=== PATIENT | female | born 1995 | race Caucasian/White ===

== ENCOUNTER 2020-04-27 16:42 | Inpatient (IN) | payer BC ==
[2020-04-27] MEDS ORDERED: Acetaminophen 325 MG Tab PO PRN (17:49)
[2020-04-27] MEDS ORDERED: Ondansetron 4 MG/2 ML SDV IVPUSH PRN (17:49)
[2020-04-27] MEDS ORDERED: Nalbuphine 10 MG/ML Syringe IVPUSH PRN (17:49)
[2020-04-27] MEDS ORDERED: Lidocaine 1% 50 ML MDV INJECT ONE (17:49)
[2020-04-27] MEDS ORDERED: Calcium Carbonate 500 MG Tab.Chew PO PRN (17:49)
[2020-04-27] MEDS ORDERED: Sodium Chloride 0.9% 10 ML Syringe FLUSH PRN (17:49)
[2020-04-27] MEDS ORDERED: Oxytocin/Lactated Ringers 10 UNIT/1,000 ML BAG IV SCH (18:00)
--- NOTE | 2020-04-27 19:40 | PCM.LDHP ---
<Maira Tolentino - Last Filed: 04/28/20 08:27> L&D History of Present Illness - General Admit Problem/Dx: Patient Status Order with Admit Dx/Problem 04/27/20 17:49 Patient Status [ADT] Routine Admission Diagnosis/Problem Admission Diagnosis/Problem - Related Data Allergies/Adverse Reactions: Allergies Allergy/AdvReac Type Severity Reaction Status Date / Time No Known Allergies Allergy Verified 04/27/20 18:42 Home Medications: Home Meds Calcium Carbonate [Tums] 1,000 mg PO BID 04/27/20 [History] Vit/FA/Fe Fumarate/Se [ MTR] 1 tab PO DAILY 04/27/20 [History] H&P Review of Systems - Review of Systems: General: Reports: No Symptoms HEENT: Reports: No Symptoms Pulmonary: Reports: No Symptoms Cardiovascular: Reports: No Symptoms Gastrointestinal: Reports: No Symptoms Genitourinary: Reports: No Symptoms Musculoskeletal: Reports: No Symptoms Skin: Reports: No Symptoms Psychiatric: Reports: No Symptoms Neurological: Reports: No Symptoms Hematologic/Lymphatic: Reports: No Symptoms Immunologic: Reports: No Symptoms L&D Exam - Vital Signs Vital Signs: Last Vital Signs Temp 37.2 C 04/27/20 17:49 Pulse 86 04/27/20 17:49 Resp 14 04/27/20 17:49 BP 131/85 04/27/20 17:49 Pulse Ox - Patient Data Lab Results Last 24 hrs: Laboratory Results - last 24 hr 04/27/20 04/27/20 04/27/20 Range/Units 17:45 18:02 18:02 WBC 9.33 (3.98-10.04) K/mm3 RBC 4.44 (3.98-5.22) M/mm3 Hgb 12.8 (11.2-15.7) gm/dl Hct 38.4 (34.1-44.9) % MCV 86.5 (79.4-94.8) fl MCH 28.8 (25.6-32.2) pg MCHC 33.3 (32.2-35.5) g/dl RDW Std Deviation 40.7 (36.4-46.3) fL Plt Count 240 (182-369) K/mm3 MPV 10.1 (9.4-12.3) fl Neut % (Auto) 66.0 (34.0-71.1) % Lymph % (Auto) 22.2 (19.3-51.7) % [place] % (Auto) 10.4 (4.7-12.5) % Eos % (Auto) 1.0 (0.7-5.8) Baso % (Auto) 0.1 (0.1-1.2) % Neut # (Auto) 6.16 H (1.56-6.13) K/mm3 Lymph # (Auto) 2.07 (1.18-3.74) K/mm3 [place] # (Auto) 0.97 H (0.24-0.36) K/mm3 Eos # (Auto) 0.09 (0.04-0.36) K/mm3 Baso # (Auto) 0.01 (0.01-0.08) K/mm3 RPR Non-reactive (NONREACTIVE) SARS CoV-2 RNA Rapid CHER Negative (NEGATIVE) Result Diagrams: 04/27/20 18:02 Orders Last 24hrs: Active Orders 24 hr Category Date Time Status Patient Status [ADT] Routine ADT 04/27/20 17:49 Active Activity as Tolerated [RC] PFP Care 04/27/20 17:49 Active Communication Order [RC] ASDIRECTED Care 04/27/20 17:49 Active Heart Tones [RC] ASDIRECTED Care 04/27/20 17:50 Active Notify Provider [RC] ASDIRECTED Care 04/28/20 01:08 Active Notify Provider [RC] PFP Care 04/27/20 17:49 Active Notify Provider [RC] PRN Care 04/27/20 17:49 Active Peripheral IV Care [RC] . DIRECTED Care 04/27/20 17:50 Active Urinary Catheter Assessment [RC] ASDIRECTED Care 04/27/20 17:49 Active Vital Signs [RC] PER UNIT ROUTINE Care 04/27/20 17:49 Active Acetaminophen [TylenoL] Med 04/27/20 17:49 Active 650 mg PO Q4H PRN Bupivacaine/fentaNYL/NS [fentaNYL/Bupivacaine/NS 2 MCG- Med 04/28/20 01:08 Active 0.125% 100 ML] 100 ml EPIDUR ASDIRECTED PRN Calcium Carbonate [Tums] Med 04/27/20 17:49 Active 1,000 mg PO Q2H PRN Lactated Ringers [Ringers, Lactated] 1,000 ml Med 04/27/20 18:00 Active IV ASDIRECTED Nalbuphine [Nubain] Med 04/27/20 17:49 Active 10 mg IVPUSH Q2H PRN Ondansetron [Zofran] Med 04/27/20 17:49 Active 4 mg IVPUSH Q4H PRN Oxytocin/Lactated Ringers [Pitocin in LR 10 Units/1,000 Med 04/27/20 18:00 Active ML] 10 unit in 1,000 ml IV .CONTINUOUS Oxytocin/Lactated Ringers [Pitocin in LR 10 Units/1,000 Med 04/27/20 18:00 Active ML] 10 unit in 1,000 ml IV TITRATE Sodium Chloride 0.9% [Saline Flush] Med 04/27/20 17:49 Active 10 ml FLUSH ASDIRECTED PRN diphenhydrAMINE [Benadryl] Med 04/28/20 01:08 Active 25 mg IVPUSH Q6H PRN ePHEDrine [ePHEDrine sulfate] Med 04/28/20 01:08 Active 5 mg IVPUSH ASDIRECTED PRN fentaNYL [Sublimaze] Med 04/28/20 01:08 Active 100 mcg EPIDUR Q3H PRN Electronic Heart Tones Ext w TOCO [WOMSER] Oth 04/27/20 17:49 Ordered Routine Electronic Heart Tones Internal [WOMSER] Per Unit Ot 04/27/20 17:49 Ordered Routine Peripheral IV Insertion Adult [OM.PC] Routine Oth 04/27/20 17:49 Ordered Resuscitation Status Routine Resus Stat 04/27/20 17:49 Ordered Medication Orders Acetaminophen (Tylenol) 650 mg PO Q4H PRN PRN Reason: Pain (Mild 1-3) and fever Calcium Carbonate/Glycine (Tums) 1,000 mg PO Q2H PRN PRN Reason: Indigestion Diphenhydramine HCl (Benadryl) 25 mg IVPUSH Q6H PRN PRN Reason: pruritis Ephedrine Sulfate (Ephedrine Sulfate) 5 mg IVPUSH ASDIRECTED PRN PRN Reason: Hypotension Fentanyl (Sublimaze) 100 mcg EPIDUR Q3H PRN PRN Reason: Pain Last Admin: 04/28/20 01:44 Dose: 100 mcg Documented by: MYRON Fentanyl/Bupivacaine HCl (Fentanyl/Bupivacaine/Ns 2 Mcg-0.125% 100 Ml) 100 ml EPIDUR ASDIRECTED PRN PRN Reason: Pain Last Admin: 04/28/20 01:44 Dose: 100 ml Documented by: MYRON Oxytocin/Lactated Ringer's (Pitocin In Lr 10 Units/1,000 Ml) 10 unit in 1,000 mls @ 12 mls/hr IV TITRATE MAHNAZ; Protocol Last Titration: 04/28/20 04:35 Dose: 14 munits/min, 84 mls/hr Documented by: Titration: 04/28/20 03:56 Dose: 12 munits/min, 72 mls/hr Documented by: Titration: 04/28/20 03:10 Dose: 10 munits/min, 60 mls/hr Documented by: Titration: 04/28/20 01:55 Dose: 8 munits/min, 48 mls/hr Documented by: Titration: 04/27/20 23:21 Dose: 6 munits/min, 36 mls/hr Documented by: Titration: 04/27/20 22:42 Dose: 4 munits/min, 24 mls/hr Documented by: Admin: 04/27/20 21:50 Dose: 2 munits/min, 12 mls/hr Documented by: MYRON Oxytocin/Lactated Ringer's (Pitocin In Lr 10 Units/1,000 Ml) 10 unit in 1,000 mls @ 100 mls/hr IV .CONTINUOUS MAHNAZ; Protocol Lactated Ringer's (Ringers, Lactated) 1,000 mls @ 100 mls/hr IV ASDIRECTED MAHNAZ Last Admin: 04/28/20 03:07 Dose: 100 mls/hr Documented by: Infusion: 04/28/20 03:07 Dose: 100 mls/hr Documented by: Admin: 04/28/20 01:07 Dose: 100 mls/hr Documented by: Infusion: 04/28/20 01:07 Dose: 100 mls/hr Documented by: Admin: 04/27/20 21:50 Dose: 100 mls/hr Documented by: MYRON Nalbuphine HCl (Nubain) 10 mg IVPUSH Q2H PRN PRN Reason: Pain Ondansetron HCl (Zofran) 4 mg IVPUSH Q4H PRN PRN Reason: Nausea/Vomiting Sodium Chloride (Saline Flush) 10 ml FLUSH ASDIRECTED PRN PRN Reason: Keep Vein Open <MaishaVonnie L - Last Filed: 04/28/20 13:45> L&D History of Present Illness - General Date of Service: 04/27/20 Admit Problem/Dx: Patient Status Order with Admit Dx/Problem 04/27/20 17:49 Patient Status [ADT] Routine Admission Diagnosis/Problem Admission Diagnosis/Problem Source of Information: Patient History Limitations: Reports: No Limitations - History of Present Illness Introduction:: at 40w6d comes in for induction of labor. She lost her mucus plug this morning, but she has not had any regular contractions at this time. 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 Social & Family History - Family History Family Medical History: Noncontributory - Tobacco Use Smoking Status *Q: Never Smoker Second Hand Smoke Exposure: No - Caffeine Use Caffeine Use: Reports: None - Recreational Drug Use Recreational Drug Use: No H&P Review of Systems - Review of Systems: Review Of Systems: See Below General: Denies: Fever, Chills HEENT: Reports: No Symptoms Pulmonary: Reports: No Symptoms Cardiovascular: Reports: No Symptoms Gastrointestinal: Reports: No Symptoms Genitourinary: Reports: No Symptoms Musculoskeletal: Reports: No Symptoms Skin: Reports: No Symptoms Psychiatric: Reports: No Symptoms Neurological: Reports: No Symptoms Hematologic/Lymphatic: Reports: No Symptoms Immunologic: Reports: No Symptoms L&D Exam - Exam Exam: See Below - Vital Signs Vital Signs: Last Vital Signs Temp 99.0 F 04/27/20 17:49 Pulse 86 04/27/20 17:49 Resp 14 04/27/20 17:49 BP 131/85 04/27/20 17:49 Pulse Ox Weight: 184 lb 14.4 oz - OB Specific Movement: Active Heart Tones: Present - Muhammad Score Muhammad Score Consistency: Soft Muhammad Score Effacement: >80% Muhammad Score Dilation: 3-4 cm - Exam General: Alert, Oriented HEENT: Conjunctiva Clear, Mucosa Moist & [place] Lungs: Clear to Auscultation, Normal Respiratory Effort Cardiovascular: Regular Rate, Regular Rhythm Back Exam: Normal Inspection Extremities: Normal Inspection Skin: Warm, Dry Psychiatric: Alert, Normal Affect - Patient Data Lab Results Last 24 hrs: Laboratory Results - last 24 hr 04/27/20 04/27/20 Range/Units 17:45 18:02 WBC 9.33 (3.98-10.04) K/mm3 RBC 4.44 (3.98-5.22) M/mm3 Hgb 12.8 (11.2-15.7) gm/dl Hct 38.4 (34.1-44.9) % MCV 86.5 (79.4-94.8) fl MCH 28.8 (25.6-32.2) pg MCHC 33.3 (32.2-35.5) g/dl RDW Std Deviation 40.7 (36.4-46.3) fL Plt Count 240 (182-369) K/mm3 MPV 10.1 (9.4-12.3) fl Neut % (Auto) 66.0 (34.0-71.1) % Lymph % (Auto) 22.2 (19.3-51.7) % [place] % (Auto) 10.4 (4.7-12.5) % Eos % (Auto) 1.0 (0.7-5.8) Baso % (Auto) 0.1 (0.1-1.2) % Neut # (Auto) 6.16 H (1.56-6.13) K/mm3 Lymph # (Auto) 2.07 (1.18-3.74) K/mm3 [place] # (Auto) 0.97 H (0.24-0.36) K/mm3 Eos # (Auto) 0.09 (0.04-0.36) K/mm3 Baso # (Auto) 0.01 (0.01-0.08) K/mm3 SARS CoV-2 RNA Rapid CHER Negative (NEGATIVE) Result Diagrams: 04/27/20 18:02 - Problem List (1) SNOMED Code(s): 92631704 ICD Code: Z34.90 - ENCNTR FOR SUPRVSN OF NORMAL , UNSP, UNSP TRIME STER Status: Acute Current Visit: Yes Qualifiers: Weeks of gestation: 40 weeks Qualified Code(s): Z3A.40 - 40 weeks gestation of Problem List Initiated/Reviewed/Updated: Yes Orders Last 24hrs: Active Orders 24 hr Category Date Time Status Patient Status [ADT] Routine ADT 04/27/20 17:49 Active Activity as Tolerated [RC] PFP Care 04/27/20 17:49 Active Communication Order [RC] ASDIRECTED Care 04/27/20 17:49 Active Heart Tones [RC] ASDIRECTED Care 04/27/20 17:50 Active Notify Provider [RC] PFP Care 04/27/20 17:49 Active Notify Provider [RC] PRN Care 04/27/20 17:49 Active Peripheral IV Care [RC] . DIRECTED Care 04/27/20 17:50 Active Urinary Catheter Assessment [RC] ASDIRECTED Care 04/27/20 17:49 Active Vital Signs [RC] PER UNIT ROUTINE Care 04/27/20 17:49 Active RAPID PLASMA REAGIN,RPR [CHEM] Routine Lab 04/27/20 18:02 Received Acetaminophen [TylenoL] Med 04/27/20 17:49 Active 650 mg PO Q4H PRN Calcium Carbonate [Tums] Med 04/27/20 17:49 Active 1,000 mg PO Q2H PRN Lactated Ringers [Ringers, Lactated] 1,000 ml Med 04/27/20 18:00 Active IV ASDIRECTED Nalbuphine [Nubain] Med 04/27/20 17:49 Active 10 mg IVPUSH Q2H PRN Ondansetron [Zofran] Med 04/27/20 17:49 Active 4 mg IVPUSH Q4H PRN Oxytocin/Lactated Ringers [Pitocin in LR 10 Units/1,000 Med 04/27/20 18:00 Active ML] 10 unit in 1,000 ml IV .CONTINUOUS Oxytocin/Lactated Ringers [Pitocin in LR 10 Units/1,000 Med 04/27/20 18:00 Active ML] 10 unit in 1,000 ml IV TITRATE Sodium Chloride 0.9% [Saline Flush] Med 04/27/20 17:49 Active 10 ml FLUSH ASDIRECTED PRN Electronic Heart Tones Ext w TOCO [WOMSER] Oth 04/27/20 17:49 Ordered Routine Electronic Heart Tones Internal [WOMSER] Per Unit Oth 04/27/20 17:49 Ordered Routine Peripheral IV Insertion Adult [OM.PC] Routine Oth 04/27/20 17:49 Ordered Resuscitation Status Routine Resus Stat 04/27/20 17:49 Ordered Medication Orders Acetaminophen (Tylenol) 650 mg PO Q4H PRN PRN Reason: Pain (Mild 1-3) and fever Calcium Carbonate/Glycine (Tums) 1,000 mg PO Q2H PRN PRN Reason: Indigestion Oxytocin/Lactated Ringer's (Pitocin In Lr 10 Units/1,000 Ml) 10 unit in 1,000 mls @ 12 mls/hr IV TITRATE MAHANZ; Protocol Oxytocin/Lactated Ringer's (Pitocin In Lr 10 Units/1,000 Ml) 10 unit in 1,000 mls @ 100 mls/hr IV .CONTINUOUS MAHNAZ; Protocol Lactated Ringer's (Ringers, Lactated) 1,000 mls @ 100 mls/hr IV ASDIRECTED MAHNAZ Nalbuphine HCl (Nubain) 10 mg IVPUSH Q2H PRN PRN Reason: Pain Ondansetron HCl (Zofran) 4 mg IVPUSH Q4H PRN PRN Reason: Nausea/Vomiting Sodium Chloride (Saline Flush) 10 ml FLUSH ASDIRECTED PRN PRN Reason: Keep Vein Open Assessment/Plan Comment:: Will continue to monitor her for signs of labor and assess wellbeing. Will begin oxytocin and give an epidural as needed.
[2020-04-27] MEDS: Oxytocin/Lactated Ringers 10 UNIT/1,000 ML BAG IV SCH (21:50)
[2020-04-27] MEDS: Lactated Ringers 1,000 ML IV SCH (21:50)
[2020-04-28] MEDS: Lactated Ringers 1,000 ML IV SCH ×4 (01:07→12:14)
[2020-04-28] MEDS ORDERED: diphenhydrAMINE 50 MG/ML SDV IVPUSH PRN ×3 (01:08→18:01)
[2020-04-28] MEDS ORDERED: ePHEDrine 50 MG/ML SDV IVPUSH PRN ×3 (01:08→18:01)
[2020-04-28] MEDS ORDERED: fentaNYL 100 MCG/2 ML SDV ONE ×2 (01:10→15:58)
--- NOTE | 2020-04-28 01:34 | PCM.PREANE ---
Preanesthetic Assessment - Procedure Proposed Procedure: john - Anesthesia/Transfusion/Family Hx Anesthesia History: No Prior Anesthesia Family History of Anesthesia Reaction: No Transfusion History: No Prior Transfusion(s) - Review of Systems General: No Symptoms Pulmonary: No Symptoms Cardiovascular: No Symptoms Gastrointestinal: No Symptoms Neurological: No Symptoms Other: Reports: None - Physical Assessment Vital Signs: Last Vital Signs Temp 99.0 F 04/27/20 17:49 Pulse 86 04/27/20 17:49 Resp 14 04/27/20 17:49 BP 131/85 04/27/20 17:49 Pulse Ox Height: 5 ft Weight: 83.869 kg ASA Class: 2 Mental Status: Alert & Oriented x3 Airway Class: Mallampati = 1 Dentition: Reports: Normal Dentition Thyro-Mental Finger Breadths: 3 Mouth Opening Finger Breadths: 3 ROM/Head Extension: Full Lungs: Clear to Auscultation, Normal Respiratory Effort Cardiovascular: Regular Rate, Regular Rhythm, No Murmurs - Lab Values: Laboratory Last Values WBC 9.33 K/mm3 (3.98-10.04) 04/27/20 18:02 RBC 4.44 M/mm3 (3.98-5.22) 04/27/20 18:02 Hgb 12.8 gm/dl (11.2-15.7) 04/27/20 18:02 Hct 38.4 % (34.1-44.9) 04/27/20 18:02 MCV 86.5 fl (79.4-94.8) 04/27/20 18:02 MCH 28.8 pg (25.6-32.2) 04/27/20 18: MCHC 33.3 g/dl (32.2-35.5) 04/27/20 18:02 RDW Std Deviation 40.7 fL (36.4-46.3) 04/27/20 18:02 Plt Count 240 K/mm3 (182-369) 04/27/20 18:02 MPV 10.1 fl (9.4-12.3) 04/27/20 18:02 Neut % (Auto) 66.0 % (34.0-71.1) 04/27/20 18:02 Lymph % (Auto) 22.2 % (19.3-51.7) 04/27/20 18:02 [place] % (Auto) 10.4 % (4.7-12.5) 04/27/20 18:02 Eos % (Auto) 1.0 (0.7-5.8) 04/27/20 18:02 Baso % (Auto) 0.1 % (0.1-1.2) 04/27/20 18:02 Neut # (Auto) 6.16 K/mm3 (1.56-6.13) H 04/27/20 18:02 Lymph # (Auto) 2.07 K/mm3 (1.18-3.74) 04/27/20 18:02 [place] # (Auto) 0.97 K/mm3 (0.24-0.36) H 04/27/20 18:02 Eos # (Auto) 0.09 K/mm3 (0.04-0.36) 04/27/20 18:02 Baso # (Auto) 0.01 K/mm3 (0.01-0.08) 04/27/20 18:02 RPR Non-reactive (NONREACTIVE) 04/27/20 18:02 SARS CoV-2 RNA Rapid CHER Negative (NEGATIVE) 04/27/20 17:45 - Allergies Allergies/Adverse Reactions: Allergies Allergy/AdvReac Type Severity Reaction Status Date / Time No Known Allergies Allergy Verified 04/27/20 18:42 - Blood Blood Available: No - Acknowledgements Anesthesia Type Planned: Epidural Pt an Appropriate Candidate for the Planned Anesthesia: Yes Alternatives and Risks of Anesthesia Discussed w Pt/Guardian: Yes Pt/Guardian Understands and Agrees with Anesthesia Plan: Yes PreAnesthesia Questionnaire Cardiovascular History: Reports: None Respiratory History: Reports: None Gastrointestinal History: Reports: 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: , 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 : 2 Para: 0 - SUBSTANCE USE Smoking Status *Q: Never Smoker Tobacco Use Within Last Twelve Months: No Second Hand Smoke Exposure: No Days Per Week of Alcohol Use: 0 Recreational Drug Use History: No - HOME MEDS Home Medications: Home Meds Calcium Carbonate [Tums] 1,000 mg PO BID 04/27/20 [History] Vit/FA/Fe Fumarate/Se [ MTR] 1 tab PO DAILY 04/27/20 [History] - CURRENT (IN HOUSE) MEDS Current Meds: Current Medications Acetaminophen (Tylenol) 650 mg PO Q4H PRN PRN Reason: Pain (Mild 1-3) and fever Calcium Carbonate/Glycine (Tums) 1,000 mg PO Q2H PRN PRN Reason: Indigestion Diphenhydramine HCl (Benadryl) 25 mg IVPUSH Q6H PRN PRN Reason: pruritis Ephedrine Sulfate (Ephedrine Sulfate) 5 mg IVPUSH ASDIRECTED PRN PRN Reason: Hypotension Fentanyl (Sublimaze) 100 mcg EPIDUR Q3H PRN PRN Reason: Pain Fentanyl/Bupivacaine HCl (Fentanyl/Bupivacaine/Ns 2 Mcg-0.125% 100 Ml) 100 ml EPIDUR ASDIRECTED PRN PRN Reason: Pain Oxytocin/Lactated Ringer's (Pitocin In Lr 10 Units/1,000 Ml) 10 unit in 1,000 mls @ 12 mls/hr IV TITRATE MAHNAZ; Protocol Last Titration: 04/27/20 23:21 Dose: 6 munits/min, 36 mls/hr Documented by: Oxytocin/Lactated Ringer's (Pitocin In Lr 10 Units/1,000 Ml) 10 unit in 1,000 mls @ 100 mls/hr IV .CONTINUOUS MAHNAZ; Protocol Lactated Ringer's (Ringers, Lactated) 1,000 mls @ 100 mls/hr IV ASDIRECTED MAHNAZ Last Admin: 04/28/20 01:07 Dose: 100 mls/hr Documented by: Nalbuphine HCl (Nubain) 10 mg IVPUSH Q2H PRN PRN Reason: Pain Ondansetron HCl (Zofran) 4 mg IVPUSH Q4H PRN PRN Reason: Nausea/Vomiting Sodium Chloride (Saline Flush) 10 ml FLUSH ASDIRECTED PRN PRN Reason: Keep Vein Open Discontinued Medications Fentanyl (Sublimaze) Confirm Administered Dose 100 mcg .ROUTE .STK-MED ONE Stop: 04/28/20 01:11 Lidocaine HCl (Xylocaine 1%) 50 ml INJECT ONETIME ONE Stop: 04/27/20 17:50
[2020-04-28] MEDS: fentaNYL 100 MCG/2 ML SDV EPIDUR PRN ×3 (01:44→09:47)
[2020-04-28] MEDS: Bupivacaine/fentaNYL/NS 100 ML Bag EPIDUR PRN ×2 (01:44→08:58)
[2020-04-28] MEDS: Oxytocin/Lactated Ringers 10 UNIT/1,000 ML BAG IV SCH (12:11)
--- NOTE | 2020-04-28 14:43 | PCM.PNLD ---
Labor Progress Note - VS & Meds Vital Signs: Last Vital Signs Temp 37.2 C 04/27/20 17:49 Pulse 86 04/27/20 17:49 Resp 14 04/27/20 17:49 BP 131/85 04/27/20 17:49 Pulse Ox Active Medications: Current Medications Acetaminophen (Tylenol) 650 mg PO Q4H PRN PRN Reason: Pain (Mild 1-3) and fever Last Admin: 04/28/20 12:14 Dose: 650 mg Documented by: Calcium Carbonate/Glycine (Tums) 1,000 mg PO Q2H PRN PRN Reason: Indigestion Diphenhydramine HCl (Benadryl) 25 mg IVPUSH Q6H PRN PRN Reason: pruritis Ephedrine Sulfate (Ephedrine Sulfate) 5 mg IVPUSH ASDIRECTED PRN PRN Reason: Hypotension Fentanyl (Sublimaze) 100 mcg EPIDUR Q3H PRN PRN Reason: Pain Last Admin: 04/28/20 09:47 Dose: 100 mcg Documented by: Fentanyl/Bupivacaine HCl (Fentanyl/Bupivacaine/Ns 2 Mcg-0.125% 100 Ml) 100 ml EPIDUR ASDIRECTED PRN PRN Reason: Pain Last Admin: 04/28/20 08:58 Dose: 100 ml Documented by: Oxytocin/Lactated Ringer's (Pitocin In Lr 10 Units/1,000 Ml) 10 unit in 1,000 mls @ 12 mls/hr IV TITRATE MAHNAZ; Protocol Last Titration: 04/28/20 13:00 Dose: 18 munits/min, 108 mls/hr Documented by: Oxytocin/Lactated Ringer's (Pitocin In Lr 10 Units/1,000 Ml) 10 unit in 1,000 mls @ 100 mls/hr IV .CONTINUOUS MAHNAZ; Protocol Lactated Ringer's (Ringers, Lactated) 1,000 mls @ 100 mls/hr IV ASDIRECTED MAHNAZ Last Admin: 04/28/20 12:14 Dose: 100 mls/hr Documented by: Nalbuphine HCl (Nubain) 10 mg IVPUSH Q2H PRN PRN Reason: Pain Ondansetron HCl (Zofran) 4 mg IVPUSH Q4H PRN PRN Reason: Nausea/Vomiting Sodium Chloride (Saline Flush) 10 ml FLUSH ASDIRECTED PRN PRN Reason: Keep Vein Open Discontinued Medications Fentanyl (Sublimaze) Confirm Administered Dose 100 mcg .ROUTE .STK-MED ONE Stop: 04/28/20 01:11 Last Admin: 04/28/20 02:23 Dose: Not Given Documented by: Lidocaine HCl (Xylocaine 1%) 50 ml INJECT ONETIME ONE Stop: 04/27/20 17:50 - Uterine Contractions Contraction Intensity: Mild - Monitoring Strip Review: Category I - Vaginal Exam Dilation (cm): 9.5 Effacement (Percent): 80 Station: -2 - Labor Progress (Free Text) Labor Progress: Still has anterior rim since 11am. Will attempt further position changes and recheck in 30 minutes or so. If no progress will consent for section.
[2020-04-28] MEDS ORDERED: Metoclopramide 10 MG/2 ML SDV IVPUSH ONE (15:27)
[2020-04-28] MEDS ORDERED: Citric Acid/Sodium Citrate Solution 30 ML Cup PO ONE (15:27)
[2020-04-28] MEDS ORDERED: Sodium Chloride 0.9% 10 ML Syringe FLUSH PRN (15:27)
[2020-04-28] MEDS ORDERED: Lactated Ringers 1,000 ML IV SCH (15:30)
[2020-04-28] MEDS ORDERED: Bupivacaine 0.5% 30 ML SDV ONE (15:52)
[2020-04-28] MEDS ORDERED: Lactated Ringers 2,000 ML ONE (15:58)
[2020-04-28] MEDS ORDERED: Ketorolac 30 MG/ML SDV ONE (15:58)
[2020-04-28] MEDS ORDERED: ceFAZolin 1 GM Vial ONE (15:58)
[2020-04-28] MEDS ORDERED: Morphine PF 1 MG/ML Amp ONE (15:58)
[2020-04-28] MEDS ORDERED: Oxytocin 10 Units/1 ML SDV ONE (15:58)
[2020-04-28] MEDS ORDERED: Ondansetron 4 MG/2 ML SDV ONE (15:58)
[2020-04-28] MEDS ORDERED: Lidocaine 2% with EPINEPHrine 1:200,000 20 ML SDV ONE (15:58)
[2020-04-28] MEDS ORDERED: Morphine PF 10 MG/10 ML SDV ONE (15:59)
[2020-04-28] MEDS ORDERED: Lidocaine 1.5% with EPINEPHrine 1:200,000 5 ML Amp ONE (16:00)
[2020-04-28] MEDS ORDERED: Bupivacaine 0.25% 10 ML SDV ONE (16:00)
[2020-04-28] MEDS ORDERED: Azithromycin 500 MG in Sodium Chloride 0.9% 250 ML IV ONE (16:00)
[2020-04-28] MEDS ORDERED: fentaNYL 100 MCG/2 ML SDV IVPUSH PRN (16:07)
[2020-04-28] MEDS ORDERED: HYDROmorphone 0.5 MG/0.5 ML Syringe IVPUSH PRN (16:07)
[2020-04-28] MEDS ORDERED: Ondansetron 4 MG/2 ML SDV IVPUSH PRN (16:07)
[2020-04-28] MEDS ORDERED: Meperidine 50 MG/ML Vial ONE (16:53)
--- NOTE | 2020-04-28 17:25 | PCM.OPNOTE ---
- General Post-Op/Procedure Note Date of Surgery/Procedure: 04/28/20 Operative Procedure(s): primary section Findings: Viable male, weight 6#6oz, normal uterus tubes and ovaries. Pre Op Diagnosis: failure to descend Primary Surgeon: Maira Tolentino Electric Lineman: Abilio Grissom Jr Pathology: none Fluid Replacement, Intraop: 1,100 Output, Urine Amount: 300 EBL in mLs: 700 Complications: None Condition: Good Free Text/Narrative:: The patient was taken to the operating room where spinal was placed anesthesia was dosed to surgical levels without difficulty. The patient was prepped and draped in the usual sterile fashion in the dorsal supine position with a leftward tilt. A Pfannenstiel skin incision was made with the scalpel and carried through to the underlying layer of fascia. The fascia was incised in the midline and extended laterally using Mcelroy scissors. Alexander clamps were used to elevate the superior aspect of the fascial incision, which was elevated, and the underlying rectus muscles were dissected off bluntly and using Mcelroy scissors. Attention was then turned to the inferior aspect of the fascial incision, which in similar fashion was grasped with Alexander clamps, elevated, and the underlying rectus muscles were dissected off bluntly and using the mcelroy. The rectus muscles were dissected in the midline. The peritoneum was entered bluntly; this incision was extended superiorly and inferiorly with good visualization of the bladder. The bladder blade was inserted. The vesicouterine peritoneum was identified and entered sharply using Metzenbaum scissors. This incision was extended laterally and the bladder flap was created digitally. The bladder blade was reinserted. The lower uterine segment was incised in a transverse fashion using the scalpel and with digital traction. Clear fluid was noted. The infant was subsequently delivered by flexing the head to the incision. Body and shoulders followed without difficulty. The cord was clamped and cut. The infant was subsequently handed to the awaiting felt carbonizer whose presence had been requested.. The placenta was delivered spontaneously intact with a three-vessel cord noted. The uterus was exteriorized and cleared of all clots and debris. The uterine incision was repaired in 2 layers using 0 monocryl. Hemostasis was visualized. Hemostasis was visualized bilaterally. The uterus was returned to the abdomen. The uterine incision was reexamined and it was noted to be hemostatic. The pelvis was copiously irrigated. The fascia was closed with 1 PDS suture, and the skin was closed with 3-0 monocryl. Sponge, lap, and instrument counts were correct x2. The patient was stable at the completion of the procedure and was subsequently transferred to the recovery room in stable condition.
--- NOTE | 2020-04-28 17:30 | PCM.POSTAN ---
POST ANESTHESIA ASSESSMENT - MENTAL STATUS Mental Status: Alert - VITAL SIGNS Vital Signs: Last Vital Signs Temp 37.1 C 04/28/20 17:11 Pulse 86 04/27/20 17:49 Resp 14 04/28/20 17:20 BP 117/50 L 04/28/20 17:20 Pulse Ox 99 04/28/20 17:20 - RESPIRATORY Respiratory Status: Respiratory Rate WNL, Airway Patent, O2 Saturation Stable - CARDIOVASCULAR CV Status: Pulse Rate WNL, Blood Pressure Stable - GASTROINTESTINAL GI Status: No Symptoms - POST OP HYDRATION Hydration Status: Adequate & Stable
[2020-04-28] MEDS ORDERED: Naloxone 0.4 MG/ML SDV IVPUSH PRN (18:01)
[2020-04-28] MEDS ORDERED: Ibuprofen 600 MG Tab PO PRN (18:01)
[2020-04-28] MEDS ORDERED: Dextrose 5%-Lactated Ringers 1,000 ML IV SCH (18:01)
[2020-04-28] MEDS ORDERED: Docusate Sodium 100 MG Cap PO PRN (18:01)
[2020-04-28] MEDS ORDERED: Acetaminophen/oxyCODONE 325-5 MG Tab PO PRN (19:38)
[2020-04-28] MEDS: Ketorolac 30 MG/ML SDV IVPUSH SCH (23:24)
[2020-04-29] MEDS: Ketorolac 30 MG/ML SDV IVPUSH SCH ×2 (05:43→11:19)
--- NOTE | 2020-04-29 07:38 | PCM.PNPP ---
- General Info Date of Service: 04/29/20 Functional Status: Reports: Pain Controlled - Review of Systems General: Reports: No Symptoms HEENT: Reports: No Symptoms Pulmonary: Reports: No Symptoms Cardiovascular: Reports: No Symptoms Gastrointestinal: Reports: No Symptoms Genitourinary: Reports: No Symptoms Musculoskeletal: Reports: No Symptoms Skin: Reports: No Symptoms Neurological: Reports: No Symptoms Psychiatric: Reports: No Symptoms - General Info Date of Service: 04/29/20 - Patient Data Vital Signs - Most Recent: Last Vital Signs Temp 36.8 C 04/29/20 04:07 Pulse 72 04/29/20 04:07 Resp 14 04/29/20 04:07 BP 113/54 L 04/29/20 04:07 Pulse Ox 97 04/29/20 04:07 Weight - Most Recent: 83.869 kg I&O - Last 24 Hours: Intake & Output 04/28/20 04/29/20 04/29/20 22:59 06:59 14:59 Intake Total 3750 Output Total 2022 900 Balance 1725 -900 Lab Results - Last 24 Hours: Laboratory Results - last 24 hr 04/27/20 04/29/20 Range/Units 14:25 04:49 WBC 12.16 H (3.98-10.04) K/mm3 RBC 3.27 L (3.98-5.22) M/mm3 Hgb 9.4 L D (11.2-15.7) gm/dl Hct 29.1 L (34.1-44.9) % MCV 89.0 (79.4-94.8) fl MCH 28.7 (25.6-32.2) pg MCHC 32.3 (32.2-35.5) g/dl RDW Std Deviation 40.9 (36.4-46.3) fL Plt Count 216 (182-369) K/mm3 MPV 10.4 (9.4-12.3) fl Neut % (Auto) 71.9 H (34.0-71.1) % Lymph % (Auto) 17.7 L (19.3-51.7) % [place] % (Auto) 9.4 (4.7-12.5) % Eos % (Auto) 0.6 L (0.7-5.8) Baso % (Auto) 0.1 (0.1-1.2) % Neut # (Auto) 8.75 H (1.56-6.13) K/mm3 Lymph # (Auto) 2.15 (1.18-3.74) K/mm3 [place] # (Auto) 1.14 H (0.24-0.36) K/mm3 Eos # (Auto) 0.07 (0.04-0.36) K/mm3 Baso # (Auto) 0.01 (0.01-0.08) K/mm3 Blood Type B POSITIVE Gel Antibody Screen Negative Med Orders - Current: Current Medications Diphenhydramine HCl (Benadryl) 25 mg IVPUSH Q6H PRN PRN Reason: Itching or Nausea Docusate Sodium (Colace) 100 mg PO Q12H PRN PRN Reason: Constipation Ephedrine Sulfate (Ephedrine Sulfate) 5 mg IVPUSH SEECOMMENT PRN PRN Reason: Other Ibuprofen (Motrin) 600 mg PO Q6H PRN PRN Reason: mild pain or fever Ketorolac Tromethamine (Toradol) 30 mg IVPUSH Q6H MAHNAZ Stop: 04/29/20 11:01 Last Admin: 04/29/20 05:43 Dose: 30 mg Documented by: Naloxone HCl (Narcan) 0.1 mg IVPUSH SEECOMMENT PRN PRN Reason: Respiratory Depression Oxycodone/Acetaminophen (Percocet 325-5 Mg) 1 tab PO Q4H PRN PRN Reason: Pain (severe 7-10) Oxycodone/Acetaminophen (Percocet 325-5 Mg) 2 tab PO Q4H PRN PRN Reason: Pain (severe 7-10) Discontinued Medications Acetaminophen (Tylenol) 650 mg PO Q4H PRN PRN Reason: Pain (Mild 1-3) and fever Last Admin: 04/28/20 12:14 Dose: 650 mg Documented by: Bupivacaine HCl (Marcaine 0.5%) Confirm Administered Dose 30 ml .ROUTE .STK-MED ONE Stop: 04/28/20 15:53 Calcium Carbonate/Glycine (Tums) 1,000 mg PO Q2H PRN PRN Reason: Indigestion Cefazolin Sodium (Ancef) Confirm Administered Dose 2 gm .ROUTE .STK-MED ONE Stop: 04/28/20 15:59 Citric Acid/Sodium Citrate (Bicitra Solution) 30 ml PO ONETIME ONE Stop: 04/28/20 15:28 Last Admin: 04/28/20 15:37 Dose: 30 ml Documented by: Diphenhydramine HCl (Benadryl) 25 mg IVPUSH Q6H PRN PRN Reason: pruritis Diphenhydramine HCl (Benadryl) 25 mg IVPUSH Q6H PRN PRN Reason: pruritis Stop: 04/28/20 19:00 Ephedrine Sulfate (Ephedrine Sulfate) 5 mg IVPUSH ASDIRECTED PRN PRN Reason: Hypotension Ephedrine Sulfate (Ephedrine Sulfate) 5 mg IVPUSH ASDIRECTED PRN PRN Reason: Hypotension Stop: 04/28/20 19:00 Fentanyl (Sublimaze) 100 mcg EPIDUR Q3H PRN PRN Reason: Pain Last Admin: 04/28/20 09:47 Dose: 100 mcg Documented by: Fentanyl (Sublimaze) Confirm Administered Dose 100 mcg .ROUTE .STK-MED ONE Stop: 04/28/20 01:11 Last Admin: 04/28/20 02:23 Dose: Not Given Documented by: Fentanyl (Sublimaze) Confirm Administered Dose 100 mcg .ROUTE .STK-MED ONE Stop: 04/28/20 15:59 Fentanyl (Sublimaze) 50 mcg IVPUSH Q5M PRN PRN Reason: Pain Stop: 04/28/20 19:00 Fentanyl/Bupivacaine HCl (Fentanyl/Bupivacaine/Ns 2 Mcg-0.125% 100 Ml) 100 ml EPIDUR ASDIRECTED PRN PRN Reason: Pain Last Admin: 04/28/20 08:58 Dose: 100 ml Documented by: Hydromorphone HCl (Dilaudid) 0.5 mg IVPUSH ONETIME PRN PRN Reason: Pain Stop: 04/28/20 19:00 Oxytocin/Lactated Ringer's (Pitocin In Lr 10 Units/1,000 Ml) 10 unit in 1,000 mls @ 12 mls/hr IV TITRATE MAHNAZ; Protocol Last Titration: 04/28/20 13:00 Dose: 18 munits/min, 108 mls/hr Documented by: Oxytocin/Lactated Ringer's (Pitocin In Lr 10 Units/1,000 Ml) 10 unit in 1,000 mls @ 100 mls/hr IV .CONTINUOUS MAHNAZ; Protocol Lactated Ringer's (Ringers, Lactated) 1,000 mls @ 100 mls/hr IV ASDIRECTED MAHNAZ Last Admin: 04/28/20 12:14 Dose: 100 mls/hr Documented by: Lactated Ringer's (Ringers, Lactated) 1,000 mls @ 125 mls/hr IV ASDIRECTED MAHNAZ Azithromycin 500 mg/ Sodium (Chloride) 250 mls @ 250 mls/hr IV ONETIME ONE Stop: 04/28/20 16:59 Last Admin: 04/28/20 15:52 Dose: 250 mls/hr Documented by: Lactated Ringer's (Ringers, Lactated) Confirm Administered Dose 2,000 mls @ as directed .ROUTE .STK-MED ONE Stop: 04/28/20 15:59 Dextrose/Lactated Ringer's (Dextrose 5%-Lactated Ringers) 1,000 mls @ 125 mls/hr IV ASDIRECTED MAHNAZ Stop: 04/29/20 02:00 Last Admin: 04/28/20 19:53 Dose: 125 mls/hr Documented by: Ketorolac Tromethamine (Toradol) Confirm Administered Dose 30 mg .ROUTE .STK-MED ONE Stop: 04/28/20 15:59 Lidocaine HCl (Xylocaine 1%) 50 ml INJECT ONETIME ONE Stop: 04/27/20 17:50 Last Admin: 04/28/20 18:00 Dose: Not Given Documented by: Lidocaine/Epinephrine (Xylocaine-Mpf 2%-Epi 1:200,000) Confirm Administered Dose 0 ml .ROUTE .STK-MED ONE Stop: 04/28/20 15:59 Meperidine HCl (Meperidine) Confirm Administered Dose 50 mg .ROUTE .STK-MED ONE Stop: 04/28/20 16:54 Metoclopramide HCl (Reglan) 10 mg IVPUSH ONETIME ONE Stop: 04/28/20 15:28 Last Admin: 04/28/20 15:38 Dose: 10 mg Documented by: Miscellaneous Medication (Phenylephrine 1 Mg/10 Ml-Ns) Confirm Administered Dose 1 mg .ROUTE .STK-MED ONE Stop: 04/28/20 15:59 Miscellaneous Medication (Phenylephrine 1 Mg/10 Ml-Ns) 0 mg IVPUSH ONETIME MAHNAZ Stop: 04/28/20 19:00 Morphine Sulfate (Duramorph Pf) Confirm Administered Dose 0 mg .ROUTE .STK-MED ONE Stop: 04/28/20 15:59 Morphine Sulfate (Duramorph Pf) Confirm Administered Dose 10 mg .ROUTE .STK-MED ONE Stop: 04/28/20 16:00 Nalbuphine HCl (Nubain) 10 mg IVPUSH Q2H PRN PRN Reason: Pain Ondansetron HCl (Zofran) 4 mg IVPUSH Q4H PRN PRN Reason: Nausea/Vomiting Ondansetron HCl (Zofran) Confirm Administered Dose 4 mg .ROUTE .STK-MED ONE Stop: 04/28/20 15:59 Ondansetron HCl (Zofran) 4 mg IVPUSH ONETIME PRN PRN Reason: Nausea/Vomiting Stop: 04/28/20 19:00 Oxytocin (Pitocin) Confirm Administered Dose 10 unit .ROUTE .STK-MED ONE Stop: 04/28/20 15:59 Sodium Chloride (Saline Flush) 10 ml FLUSH ASDIRECTED PRN PRN Reason: Keep Vein Open Sodium Chloride (Saline Flush) 10 ml FLUSH ASDIRECTED PRN PRN Reason: Keep Vein Open - Infant Interaction Infant Disposition, : at Bedside Support Person: - Recovery Exam Fundal Tone: Firm Fundal Level: At Umbilicus Fundal Placement: Midline Lochia Amount: Small Lochia Color: Rubra/Red Perineum Description: Intact, Minimal Bruising/Swelling Bladder Status: Indwelling Catheter in Place Urinary Elimination: Indwelling Catheter - Exam General: Alert, Oriented HEENT: Pupils Equal Neck: Supple Lungs: Clear to Auscultation, Normal Respiratory Effort Cardiovascular: Regular Rate, Regular Rhythm GI/Abdominal Exam: Normal Bowel Sounds, Soft, Non-Tender, No Organomegaly, No Distention, No Abnormal Bruit, No Mass, Pelvis Stable Extremities: Normal Inspection, Normal Range of Motion, Non-Tender, No Pedal Edema, Normal Capillary Refill Skin: Warm, Dry, Intact Neurological: No New Focal Deficit Psy/Mental Status: Alert, Normal Affect, Normal Mood - Problem List Review Problem List Initiated/Reviewed/Updated: Yes - My Orders Last 24 Hours: My Active Orders 04/28/20 Breakfast Regular Diet [DIET] 04/28/20 18:01 Docusate Sodium [Colace] 100 mg PO Q12H PRN Ibuprofen [Motrin] 600 mg PO Q6H PRN Naloxone [Narcan] 0.1 mg IVPUSH SEECOMMENT PRN diphenhydrAMINE [Benadryl] 25 mg IVPUSH Q6H PRN ePHEDrine [ePHEDrine sulfate] 5 mg IVPUSH SEECOMMENT PRN 04/28/20 18:01 Communication Order [RC] PER UNIT ROUTINE Communication Order [RC] PER UNIT ROUTINE Communication Order [RC] PER UNIT ROUTINE Vital Signs [RC] Q1HR Assess Lochia [WOMSER] Per Unit Routine Assess Uterine Involution [WOMSER] Per Unit Routine Medication Administration Instruction [OM.PC] Routine 04/28/20 19:38 Acetaminophen/oxyCODONE [Percocet 325-5 MG] 1 tab PO Q4H PRN 04/28/20 23:00 Ketorolac [Toradol] 30 mg IVPUSH Q6H 04/29/20 00:31 Acetaminophen/oxyCODONE [Percocet 325-5 MG] 2 tab PO Q4H PRN 04/29/20 17:16 Urinary Catheter Removal [RC] Per Unit Routine - Plan Plan:: Term . Doing well
--- NOTE | 2020-04-29 09:23 | PCM48HPAN ---
Post Anesthesia Note - EVALUATION WITHIN 48HRS OF ANESTHETIC Vital Signs in Normal Range: Yes Patient Participated in Evaluation: Yes Respiratory Function Stable: Yes Airway Patent: Yes Cardiovascular Function Stable: Yes Hydration Status Stable: Yes Pain Control Satisfactory: Yes Nausea and Vomiting Control Satisfactory: Yes Mental Status Recovered: Yes Vital Signs: Last Vital Signs Temp 36.8 C 04/29/20 04:07 Pulse 72 04/29/20 04:07 Resp 15 04/29/20 07:00 BP 113/54 L 04/29/20 04:07 Pulse Ox 98 04/29/20 07:00 - COMMENTS/OBSERVATIONS Free Text/Narrative:: no anesthesia complications noted
[2020-04-29] MEDS ORDERED: Ibuprofen 600 MG Tab PO PRN (17:00)
[2020-04-29] MEDS: Acetaminophen/oxyCODONE 325-5 MG Tab PO PRN (20:52)
[2020-04-30] MEDS: Acetaminophen/oxyCODONE 325-5 MG Tab PO PRN ×2 (03:33→08:14)
--- NOTE | 2020-04-30 07:37 | PCM.DCSUM1 ---
Discharge Summary - Hospital Course Free Text/Narrative:: Admitted for SROM and labor. 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 Decision for . Diagnosis: Stroke: No - Discharge Data Discharge Date: 04/30/20 Discharge Disposition: Home, Self-Care 01 Condition: Good - Referral to Home Health Primary Care Physician: Maira Tolentino MD - Patient Summary/Data Operative Procedure(s) Performed: primary section - Patient Instructions Diet: Usual Diet as Tolerated Activity: No Strenuous Activities Activity, Other: pelvic rest Driving: Do Not Drive Showering/Bathing: May Shower Wound/Incision Care: Keep Operative Site/Wound Site Clean and Dry Notify Provider of: Fever, Increased Pain, Swelling and Redness, Drainage, Nausea and/or Vomiting - Discharge Plan *PRESCRIPTION DRUG MONITORING PROGRAM REVIEWED*: No *COPY OF PRESCRIPTION DRUG MONITORING REPORT IN PATIENT IKE: No Home Medications: Home Meds Calcium Carbonate [Tums] 1,000 mg PO BID 04/27/20 [History] Vit/FA/Fe Fumarate/Se [ MTR] 1 tab PO DAILY 04/27/20 [History] Referrals: Maira Tolentino MD [Primary Care Provider] - (2 weeks) - Discharge Summary/Plan Comment DC Time >30 min.: No - General Info Date of Service: 04/30/20 Functional Status: Reports: Pain Controlled - Review of Systems General: Reports: No Symptoms HEENT: Reports: No Symptoms Pulmonary: Reports: No Symptoms Cardiovascular: Reports: No Symptoms Gastrointestinal: Reports: No Symptoms Genitourinary: Reports: No Symptoms Musculoskeletal: Reports: No Symptoms Skin: Reports: No Symptoms Neurological: Reports: No Symptoms Psychiatric: Reports: No Symptoms - Patient Data Vitals - Most Recent: Last Vital Signs Temp 36.3 C 04/30/20 03:37 Pulse 77 04/30/20 03:37 Resp 15 04/30/20 03:37 BP 104/50 L 04/30/20 03:37 Pulse Ox 99 04/30/20 03:37 Weight - Most Recent: 83.869 kg I&O - Last 24 hours: Intake & Output 04/29/20 04/30/20 04/30/20 22:59 06:59 14:59 Output Total 600 Balance -600 Med Orders - Current: Current Medications Diphenhydramine HCl (Benadryl) 25 mg IVPUSH Q6H PRN PRN Reason: Itching or Nausea Docusate Sodium (Colace) 100 mg PO Q12H PRN PRN Reason: Constipation Last Admin: 04/29/20 21:10 Dose: 100 mg Documented by: Ephedrine Sulfate (Ephedrine Sulfate) 5 mg IVPUSH SEECOMMENT PRN PRN Reason: Other Ibuprofen (Motrin) 600 mg PO Q6H PRN PRN Reason: mild pain or fever Last Admin: 04/30/20 01:05 Dose: 600 mg Documented by: Naloxone HCl (Narcan) 0.1 mg IVPUSH SEECOMMENT PRN PRN Reason: Respiratory Depression Oxycodone/Acetaminophen (Percocet 325-5 Mg) 1 tab PO Q4H PRN PRN Reason: Pain (severe 7-10) Oxycodone/Acetaminophen (Percocet 325-5 Mg) 2 tab PO Q4H PRN PRN Reason: Pain (severe 7-10) Last Admin: 04/30/20 03:33 Dose: 2 tab Documented by: Discontinued Medications Acetaminophen (Tylenol) 650 mg PO Q4H PRN PRN Reason: Pain (Mild 1-3) and fever Last Admin: 04/28/20 12:14 Dose: 650 mg Documented by: Bupivacaine HCl (Marcaine 0.5%) Confirm Administered Dose 30 ml .ROUTE .STK-MED ONE Stop: 04/28/20 15:53 Last Admin: 04/28/20 16:37 Dose: 20 ml Documented by: Calcium Carbonate/Glycine (Tums) 1,000 mg PO Q2H PRN PRN Reason: Indigestion Cefazolin Sodium (Ancef) Confirm Administered Dose 2 gm .ROUTE .STK-MED ONE Stop: 04/28/20 15:59 Citric Acid/Sodium Citrate (Bicitra Solution) 30 ml PO ONETIME ONE Stop: 04/28/20 15:28 Last Admin: 04/28/20 15:37 Dose: 30 ml Documented by: Diphenhydramine HCl (Benadryl) 25 mg IVPUSH Q6H PRN PRN Reason: pruritis Diphenhydramine HCl (Benadryl) 25 mg IVPUSH Q6H PRN PRN Reason: pruritis Stop: 04/28/20 19:00 Ephedrine Sulfate (Ephedrine Sulfate) 5 mg IVPUSH ASDIRECTED PRN PRN Reason: Hypotension Ephedrine Sulfate (Ephedrine Sulfate) 5 mg IVPUSH ASDIRECTED PRN PRN Reason: Hypotension Stop: 04/28/20 19:00 Fentanyl (Sublimaze) 100 mcg EPIDUR Q3H PRN PRN Reason: Pain Last Admin: 04/28/20 09:47 Dose: 100 mcg Documented by: Fentanyl (Sublimaze) Confirm Administered Dose 100 mcg .ROUTE .STK-MED ONE Stop: 04/28/20 01:11 Last Admin: 04/28/20 02:23 Dose: Not Given Documented by: Fentanyl (Sublimaze) Confirm Administered Dose 100 mcg .ROUTE .STK-MED ONE Stop: 04/28/20 15:59 Fentanyl (Sublimaze) 50 mcg IVPUSH Q5M PRN PRN Reason: Pain Stop: 04/28/20 19:00 Fentanyl/Bupivacaine HCl (Fentanyl/Bupivacaine/Ns 2 Mcg-0.125% 100 Ml) 100 ml EPIDUR ASDIRECTED PRN PRN Reason: Pain Last Admin: 04/28/20 08:58 Dose: 100 ml Documented by: Hydromorphone HCl (Dilaudid) 0.5 mg IVPUSH ONETIME PRN PRN Reason: Pain Stop: 04/28/20 19:00 Oxytocin/Lactated Ringer's (Pitocin In Lr 10 Units/1,000 Ml) 10 unit in 1,000 mls @ 12 mls/hr IV TITRATE MAHNAZ; Protocol Last Titration: 04/28/20 13:00 Dose: 18 munits/min, 108 mls/hr Documented by: Oxytocin/Lactated Ringer's (Pitocin In Lr 10 Units/1,000 Ml) 10 unit in 1,000 mls @ 100 mls/hr IV .CONTINUOUS MAHNAZ; Protocol Lactated Ringer's (Ringers, Lactated) 1,000 mls @ 100 mls/hr IV ASDIRECTED MAHNAZ Last Admin: 04/28/20 12:14 Dose: 100 mls/hr Documented by: Lactated Ringer's (Ringers, Lactated) 1,000 mls @ 125 mls/hr IV ASDIRECTED MAHNAZ Azithromycin 500 mg/ Sodium (Chloride) 250 mls @ 250 mls/hr IV ONETIME ONE Stop: 04/28/20 16:59 Last Admin: 04/28/20 15:52 Dose: 250 mls/hr Documented by: Lactated Ringer's (Ringers, Lactated) Confirm Administered Dose 2,000 mls @ as directed .ROUTE .STK-MED ONE Stop: 04/28/20 15:59 Dextrose/Lactated Ringer's (Dextrose 5%-Lactated Ringers) 1,000 mls @ 125 mls/hr IV ASDIRECTED MAHNAZ Stop: 04/29/20 02:00 Last Admin: 04/28/20 19:53 Dose: 125 mls/hr Documented by: Ibuprofen (Motrin) 600 mg PO Q6H PRN PRN Reason: mild pain or fever Ketorolac Tromethamine (Toradol) Confirm Administered Dose 30 mg .ROUTE .STK-MED ONE Stop: 04/28/20 15:59 Ketorolac Tromethamine (Toradol) 30 mg IVPUSH Q6H [facility] Stop: 04/29/20 11:01 Last Admin: 04/29/20 11:19 Dose: 30 mg Documented by: Lidocaine HCl (Xylocaine 1%) 50 ml INJECT ONETIME ONE Stop: 04/27/20 17:50 Last Admin: 04/28/20 18:00 Dose: Not Given Documented by: Lidocaine/Epinephrine (Xylocaine-Mpf 2%-Epi 1:200,000) Confirm Administered Dose 0 ml .ROUTE .STK-MED ONE Stop: 04/28/20 15:59 Meperidine HCl (Meperidine) Confirm Administered Dose 50 mg .ROUTE .STK-MED ONE Stop: 04/28/20 16:54 Metoclopramide HCl (Reglan) 10 mg IVPUSH ONETIME ONE Stop: 04/28/20 15:28 Last Admin: 04/28/20 15:38 Dose: 10 mg Documented by: Miscellaneous Medication (Phenylephrine 1 Mg/10 Ml-Ns) Confirm Administered Dose 1 mg .ROUTE .STK-MED ONE Stop: 04/28/20 15:59 Miscellaneous Medication (Phenylephrine 1 Mg/10 Ml-Ns) 0 mg IVPUSH ONETIME MAHNAZ Stop: 04/28/20 19:00 Morphine Sulfate (Duramorph Pf) Confirm Administered Dose 0 mg .ROUTE .STK-MED ONE Stop: 04/28/20 15:59 Morphine Sulfate (Duramorph Pf) Confirm Administered Dose 10 mg .ROUTE .STK-MED ONE Stop: 04/28/20 16:00 Nalbuphine HCl (Nubain) 10 mg IVPUSH Q2H PRN PRN Reason: Pain Ondansetron HCl (Zofran) 4 mg IVPUSH Q4H PRN PRN Reason: Nausea/Vomiting Ondansetron HCl (Zofran) Confirm Administered Dose 4 mg .ROUTE .STK-MED ONE Stop: 04/28/20 15:59 Ondansetron HCl (Zofran) 4 mg IVPUSH ONETIME PRN PRN Reason: Nausea/Vomiting Stop: 04/28/20 19:00 Oxytocin (Pitocin) Confirm Administered Dose 10 unit .ROUTE .STK-MED ONE Stop: 04/28/20 15:59 Sodium Chloride (Saline Flush) 10 ml FLUSH ASDIRECTED PRN PRN Reason: Keep Vein Open Sodium Chloride (Saline Flush) 10 ml FLUSH ASDIRECTED PRN PRN Reason: Keep Vein Open - Exam General: Reports: Alert, Oriented HEENT: Reports: Pupils Equal Neck: Reports: Supple Lungs: Reports: Normal Respiratory Effort Cardiovascular: Reports: Regular Rate, Regular Rhythm GI/Abdominal Exam: Normal Bowel Sounds, Soft, Non-Tender, Other (incision intact ) Back Exam: Reports: Normal Inspection, Full Range of Motion Extremities: Normal Inspection, Normal Range of Motion Skin: Reports: Warm, Dry, Intact Wound/Incisions: Reports: Healing Well Neurological: Reports: No New Focal Deficit Psy/Mental Status: Reports: Alert, Normal Affect, Normal Mood
== END 2020-04-30 12:30 | disposition home or self-care (01) | DRG 540 ==
LOC: JD.OB 16:42 → OBSVTOIN 04-28 16:42 → JD.OB 04-28 16:50
PROVIDERS: ADMIT Obstetrics & Gynecology; ATTEND Obstetrics & Gynecology
PROC: 10D00Z1 Extraction of Products of Conception, Low, Open Approach (ICD-10-PCS; principal; 2020-04-28)
PROC: 10907ZC Drainage of Amniotic Fluid, Therapeutic from Products of Conception, Via Natural or Artificial Opening (ICD-10-PCS; 2020-04-28)
PROC: 3E033VJ Introduction of Other Hormone into Peripheral Vein, Percutaneous Approach (ICD-10-PCS; 2020-04-28)
PROC: 3E0R3BZ Introduction of Anesthetic Agent into Spinal Canal, Percutaneous Approach (ICD-10-PCS; 2020-04-28)
PROC: 00HU33Z Insertion of Infusion Device into Spinal Canal, Percutaneous Approach (ICD-10-PCS; 2020-04-28)
DX: O62.1 Secondary uterine inertia (principal); Z37.0 Single live birth; Z3A.40 40 weeks gestation of pregnancy; Z20.828 Contact with and (suspected) exposure to other viral communicable diseases
CPT/HCPCS: 01967; 01968; 36415; 51702; 59025; 85025; 86592; 86850; 86900; 86901; 94762; A9270-GY; J0456; J0690; J1885; J2175; J2270; J2274; J2370; J2405; J2590; J2765; J3010; J3490; J7050; J7120; J7121; U0002